=== PATIENT | male | born 1965 | race Caucasian/White ===

== ENCOUNTER 2019-08-01 19:17 | Emergency (ER) | payer SELFPAY ==
[~2019-08-01] VITALS: Ht 157.5 cm; Wt 89.8 kg
[2019-08-01 19:23] VITALS: BP_SYST 158
--- NOTE | 2019-08-01 19:27 | NUR ---
Patient to ER bed 03 to gown for evaluation. Side rails up.
--- NOTE | 2019-08-01 19:35 | NUR ---
PATIENT BIB EMS FROM WORK WITH C/O TRIP AND FALL WITH LOC. PATIENT PRESENTS WITH DRIED BLOOD TO FACE WITH ABRASIONS TO LEFT TOP HEAD, LEFT UPPER CHEEK, LEFT SIDE OF NOSE, INSIDE UPPER LEFT SIDE LIP AND LEFT CHIN. NO ACTIVE BLEEDING NOTED. HEMATOMA TO LEFT EYE WITH SWELLING. PATIENT STATES HE STATES BLURRED VISION TO LEFT EYE. PATIENT DENIES DIZZINESS, SOB, AND WEAKNESS. PATIENT STATES 6/10 HEADACHE. 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 PATIENT A&OX4. GCS 15. BILATERAL PUPILS PERRLA. FACIAL SYMMETRY NOTED. NO TRACHEAL DEVIATION NOTED. PATIENT CONNECTED TO MACHINE TANK OPERATOR WITH NSR. LUNGS CTAB WITH NO USE OF ACCESSORY MUSCLES. ABDOMEN SOFT, OBESE AND NONTENDER ON PALPATION WITH NORMO-ACTIVE BOWEL SOUNDS AUSCULTATED IN ALL FOUR QUADRANTS. PATIENT DENIES NVD. PMSC NOTED IN ALL FOUR EXTREMITIES. BILATERALLY EVEN PEDAL PUSHES AND HAND MINI LAB OPERATOR WITH NO ATAXIA OR DRIFT NOTED. AFEBRILE. ALL OTHER SKIN CLEAN DRY AND INTACT. BED LOCKED, IN LOWEST POSITION AND SIDE RAILS UP FOR SAFETY. AWAITING FURTHER ORDERS AND WILL CONTINUE TO MONITOR.
--- NOTE | 2019-08-01 19:36 | NUR ---
ER at bedside examining patient.
--- NOTE | 2019-08-01 19:42 | NUR ---
PATIENT OFF UNIT TO RADIOLOGY VIA GURNEY.
--- NOTE | 2019-08-01 20:50 | NUR ---
PATIENT VISUAL ACUITY TEST COMPLETED.
--- NOTE | 2019-08-01 21:22 | NUR ---
PATIENT FACE CLEANED WITH NORMAL SALINE AND DRIED. PATIENT TOLERATED WELL. WILL CONTINUE TO MONITOR.
[2019-08-01] MEDS ORDERED: CEPHALEXIN 500 MG CAPSULE PO ONE (21:30)
[2019-08-01 22:15] VITALS: BP_SYST 144
--- NOTE | 2019-08-01 22:15 | NUR ---
Patient given written and verbal discharge instructions and verbalizes understanding. ER MD TENORIO discussed with patient the results and treatment provided. Patient in stable condition. ID arm band removed. Rx of KEFLEX given. Patient educated on pain management and to follow up with PMD. Opportunity for questions provided and answered. Medication side effect fact sheet provided.
== END 2019-08-01 22:15 | disposition home or self-care (01) ==
LOC: EDBD 19:17 → SED 19:17
DX: S02.832A Fracture of medial orbital wall, left side, initial encounter for closed fracture (principal); S01.511A Laceration without foreign body of lip, initial encounter; S05.12XA Contusion of eyeball and orbital tissues, left eye, initial encounter; F12.90 Cannabis use, unspecified, uncomplicated; F15.90 Other stimulant use, unspecified, uncomplicated; Z71.6 Tobacco abuse counseling; W01.198A Fall on same level from slipping, tripping and stumbling with subsequent striking against other object, initial encounter; Y93.89 Activity, other specified; Y92.89 Other specified places as the place of occurrence of the external cause; Y99.8 Other external cause status
CPT/HCPCS: 70450-TC; 99284